=== PATIENT | female | born 1960 ===

== ENCOUNTER 2021-10-22 08:37 | Day surgery (SDC) | payer OTHER ==
[~2021-10-22] VITALS: Ht 157.5 cm; Wt 68.5 kg
[2021-10-22] MEDS ORDERED: diphenhydrAMINE 50 MG/ML VIAL ONE (10:24)
[2021-10-22] MEDS ORDERED: fentaNYL citrate 0.05 MG/ML VIAL ONE (10:25)
[2021-10-22] MEDS ORDERED: MIDAZOLAM 2 MG/2 ML VIAL ONE (10:25)
[2021-10-22] MEDS ORDERED: diphenhydrAMINE 50 MG/ML VIAL IVP ONE (13:10)
[2021-10-22] MEDS ORDERED: fentaNYL citrate 0.05 MG/ML VIAL IVP ONE (13:10)
[2021-10-22] MEDS ORDERED: MIDAZOLAM 2 MG/2 ML VIAL IVP ONE (13:10)
== END 2021-10-22 11:55 | disposition home or self-care (01) ==
LOC: MDS 08:37 → MMU 09:19 → MDS 11:55
PROVIDERS: ATTEND Internal Medicine Gastroenterology
DX: R10.13 Epigastric pain (principal); K29.50 Unspecified chronic gastritis without bleeding; D64.9 Anemia, unspecified; K21.9 Gastro-esophageal reflux disease without esophagitis; K31.7 Polyp of stomach and duodenum; Z98.51 Tubal ligation status; Z90.710 Acquired absence of both cervix and uterus; Z79.899 Other long term (current) drug therapy; Z20.822 Contact with and (suspected) exposure to COVID-19
CPT/HCPCS: J1200; J2250; J3010